=== PATIENT | female | born 1975 | race Caucasian/White ===

== ENCOUNTER 2017-12-12 10:56 | Day surgery (SDC) | payer MEDICAID ==
[2017-12-12] MEDS ORDERED: SOD CHLORIDE 0.9% 1,000 ML IV (12:00)
[2017-12-12] MEDS: LIDOCAINE 1% (MPF) 5 ML VIAL (14:12)
[2017-12-12] MEDS: MIDAZOLAM 1 MG/ML 2 ML INJ (14:13)
[2017-12-12] MEDS: FENTAnyl 50 MCG/ML VIAL (14:13)
[2017-12-12] MEDS ORDERED: HYDROCODONE/APAP (5/325) TAB PO (14:30)
== END 2017-12-12 17:40 | disposition home or self-care (01) ==
LOC: SDS 10:56
DX: C78.7 Secondary malignant neoplasm of liver and intrahepatic bile duct (principal); C50.911 Malignant neoplasm of unspecified site of right female breast
CPT/HCPCS: 47000; 77012; 88104; 88307; 88313; 88341; 88342